=== PATIENT | female | born 1965 | race Caucasian/White ===

== ENCOUNTER 2017-12-30 20:50 | Inpatient (IN) | payer OTHER ==
[2017-12-30] MEDS ORDERED: ALBUTEROL 0.5% (NEB) 2.5 MG/0.5 ML AMP INH (20:54)
[2017-12-30] MEDS: LEVALBUTEROL (NEB) 1.25 MG/0.5 ML AMP INH ×2 (21:05→22:40)
[2017-12-30] MEDS: SOD CHLORIDE 0.9% 1,000 ML IV (21:11)
[2017-12-30] MEDS: IBUPROFEN 800 MG TAB PO (21:11)
[2017-12-30] MEDS: SODIUM CHLORIDE 0.9% 1L BAG IV* (21:11)
[2017-12-30] MEDS: METHYLPREDNISOLONE 125 MG INJ IV (21:11)
[2017-12-31 00:19] LABS: ADD MAN DIFF? NO
[2017-12-31 00:20] LABS: BASOPHILS % 0.1 % (0.0-2.0); HEMATOCRIT 38.5 % (37.0-47.0); HEMOGLOBIN 13.2 g/dl (12.0-16.0); LYMPHOCYTES # 0.7 10^3/ul (0.8-2.9); LYMPHOCYTES % 9.7 % (15.0-51.0); MEAN CORPUSCULAR HEMOGLOBIN 30.1 pg (29.0-33.0); MEAN CORPUSCULAR HGB CONC 34.3 g/dl (32.0-37.0); MEAN CORPUSCULAR VOLUME 87.9 fl (82.0-101.0); MEAN PLATELET VOLUME 9.8 fl (7.4-10.4); MONOCYTE # 0.2 10^3/ul (0.3-0.9); MONOCYTES % 2.5 % (0.0-11.0); NEUTROPHIL # 6.2 10^3/ul (1.6-7.5); PLATELET COUNT 226 10^3/UL (140-415); RED BLOOD COUNT 4.38 10^6/ul (4.20-5.40); RED CELL DISTRIBUTION WIDTH 12.2 % (11.5-14.5)
[2017-12-31 00:20] LABS: WHITE BLOOD COUNT 7.1 10^3/ul (4.8-10.8)
[2017-12-31] MEDS ORDERED: ACETAMINOPHEN 325 MG TAB PO (00:30)
[2017-12-31] MEDS ORDERED: ONDANSETRON 4 MG INJ IV ×2 (00:30→05:00)
[2017-12-31] MEDS: SOD CHLORIDE 0.9% 500 ML IV (00:50)
[2017-12-31 00:51] LABS: BLOOD UREA NITROGEN 11 mg/dl (7-20); CARBON DIOXIDE 18 mmol/L (21-31); CHLORIDE 98 mmol/L (97-110); CREATININE 0.61 mg/dl (0.44-1.00); SODIUM 139 mmol/L (135-144)
[2017-12-31 01:09] LABS: POTASSIUM 2.9 mmol/L (3.5-5.1)
[2017-12-31 01:10] LABS: ANION GAP 26 (8-16); GLUCOSE 580 mg/dl (70-220)
[2017-12-31] MEDS: LEVALBUTEROL (NEB) 1.25 MG/0.5 ML AMP HHN ×2 (01:13→20:51)
[2017-12-31] MEDS: CEFTRIAXONE 1 GM/50 ML (PMX) 50 ML IVPB (01:28)
[2017-12-31] MEDS: ACETAMINOPHEN 500 MG TAB PO (01:28)
[2017-12-31] MEDS: POTASSIUM CHLORIDE (SR) 20 MEQ TAB PO (01:28)
[2017-12-31] MEDS: AZITHROMYCIN 500MG/NS (PMX) 250 ML IV (02:14)
[2017-12-31 02:21] LABS: LACTIC ACID 5.3 mmol/L (0.5-2.0)
[2017-12-31] MEDS: POTASSIUM CHLORIDE 50 ML IVPB ×4 (03:11→07:30)
[2017-12-31] MEDS ORDERED: SOD CHLORIDE 0.9% 1,000 ML IV (04:51)
[2017-12-31] MEDS ORDERED: DEXTROSE 50% 50 ML SYRINGE IV ×2 (05:00)
[2017-12-31] MEDS: ACCU-CHEK XX ×20 (05:00→23:56)
[2017-12-31] MEDS ORDERED: morphine 2 MG INJ IV (05:00)
[2017-12-31 05:46] LABS: ADD MAN DIFF? NO
[2017-12-31 05:49] LABS: BASOPHILS % 0.3 % (0.0-2.0); HEMATOCRIT 37.9 % (37.0-47.0); LYMPHOCYTES # 0.7 10^3/ul (0.8-2.9); LYMPHOCYTES % 10.5 % (15.0-51.0); MEAN CORPUSCULAR HEMOGLOBIN 30.6 pg (29.0-33.0); MEAN CORPUSCULAR HGB CONC 34.3 g/dl (32.0-37.0); MEAN CORPUSCULAR VOLUME 89.2 fl (82.0-101.0); MEAN PLATELET VOLUME 9.9 fl (7.4-10.4); MONOCYTE # 0.1 10^3/ul (0.3-0.9); MONOCYTES % 1.9 % (0.0-11.0); NEUTROPHIL # 5.4 10^3/ul (1.6-7.5); NEUTROPHILS % 86.5 % (39.0-77.0); PLATELET COUNT 227 10^3/UL (140-415); RED BLOOD COUNT 4.25 10^6/ul (4.20-5.40); RED CELL DISTRIBUTION WIDTH 12.3 % (11.5-14.5)
[2017-12-31 05:49] LABS: WHITE BLOOD COUNT 6.3 10^3/ul (4.8-10.8)
[2017-12-31 06:16] LABS: ANION GAP 30 (8-16); BLOOD UREA NITROGEN 12 mg/dl (7-20); CALCIUM 8.6 mg/dl (8.4-10.2); CARBON DIOXIDE 10 mmol/L (21-31); CHLORIDE 108 mmol/L (97-110); CREATININE 0.61 mg/dl (0.44-1.00); POTASSIUM 4.2 mmol/L (3.5-5.1); SODIUM 144 mmol/L (135-144)
[2017-12-31] MEDS: INSULIN HUMAN REGULAR 100 UNIT in SOD CHLORIDE 0.9% 99 ML IV ×2 (06:21→19:01)
[2017-12-31] MEDS: ALBUTEROL/IPRATROPIUM (NEB) 3 ML AMP NEB ×3 (06:25→17:31)
[2017-12-31 06:26] LABS: GLUCOSE 558 mg/dl (70-220)
[2017-12-31 06:58] LABS: HEMOGLOBIN A1C 9.6 % (0-5.9)
[2017-12-31] MEDS: FAMOTIDINE 20 MG INJ IV ×2 (09:00→21:06)
[2017-12-31] MEDS ORDERED: METHYLPREDNISOLONE 125 MG INJ IV (10:00)
[2017-12-31] MEDS ORDERED: LEVOFLOXACIN 500MG/D5W (PMX) 100 ML IVPB (10:00)
[2017-12-31] MEDS: SOD CHLORIDE 0.45% 1,000 ML IV ×3 (11:00→22:30)
[2017-12-31] MEDS: SOD CHLORIDE 0.9% 1,000 ML IV (11:32)
[2017-12-31 13:00] LABS: ANION GAP 22 (8-16); BLOOD UREA NITROGEN 11 mg/dl (7-20); CALCIUM 9.4 mg/dl (8.4-10.2); CARBON DIOXIDE 18 mmol/L (21-31); CHLORIDE 113 mmol/L (97-110); CREATININE 0.54 mg/dl (0.44-1.00); GLUCOSE 377 mg/dl (70-220); PHOSPHORUS 2.4 mg/dl (2.5-4.9); POTASSIUM 4.6 mmol/L (3.5-5.1); SODIUM 148 mmol/L (135-144)
[2017-12-31] MEDS: GUAIFENESIN/CODEINE 5ML CUP PO ×2 (17:47→22:39)
[2017-12-31] MEDS: DEXTROSE 5%-0.45% NACL 1,000 ML IV ×2 (18:42→18:59)
[2017-12-31] MEDS: ALBUTEROL/IPRATROPIUM (NEB) 3 ML AMP HHN (19:11)
[2017-12-31] MEDS ORDERED: LORAZEPAM 2 MG INJ (19:13)
[2017-12-31] MEDS ORDERED: METHYLPREDNISOLONE 125 MG INJ (19:14)
[2017-12-31] MEDS: LORAZEPAM 2 MG INJ IV (19:19)
[2017-12-31] MEDS: LABETALOL HCL 20MG INJ IV (19:19)
[2017-12-31] MEDS: METHYLPREDNISOLONE 125 MG INJ IV ×2 (19:20→23:45)
[2017-12-31] MEDS: LACTATED RINGER'S 1,000 ML IV (19:30)
[2017-12-31] MEDS: LEVOFLOXACIN 500MG/D5W (PMX) 100 ML IVPB (19:30)
[2017-12-31 19:47] LABS: AADO2 Arterial 600.1 mmHg (7.0-24.0); Arterial Base Excess -5.3 mmol/L (-3.0-3); Arterial COHb 0.1 % (0.0-3.0); Arterial Fraction of Oxyhgb 93.5 % (93.0-99.0); Arterial HCO3 20.3 mmol/L (22.0-26.0); Arterial MetHb 0.4 % (0.0-1.5); Arterial Total Hemglobin 14.9 g/dl (12.0-18.0); Arterial pCO2 40.3 mmhg (35-45); MODE MASK - NRB; Site Right Brachial
[2017-12-31] MEDS ORDERED: FUROSEMIDE 20 MG INJ (20:36)
[2017-12-31] MEDS: IPRATROPIUM (NEB) 0.5 MG/2.5 ML AMP HHN (20:51)
[2017-12-31] MEDS: SODIUM PHOSPHATE 15 MMOL in SOD CHLORIDE 0.9% 250 ML IVPB (21:06)
[2017-12-31] MEDS: FUROSEMIDE 20 MG INJ IV (21:06)
[2018-01-01 00:04] LABS: PHOSPHORUS 2.8 mg/dl (2.5-4.9)
[2018-01-01 00:04] LABS: MAGNESIUM 1.8 mg/dl (1.7-2.5)
[2018-01-01 00:14] LABS: B-TYPE NATRIURETIC PEPTIDE 5350 PG/ML (0-125)
[2018-01-01 00:50] LABS: ALBUMIN 4.1 g/dl (3.3-4.9); ANION GAP 21 (8-16); BLOOD UREA NITROGEN 14 mg/dl (7-20); CALCIUM 9.4 mg/dl (8.4-10.2); CARBON DIOXIDE 19 mmol/L (21-31); CHLORIDE 114 mmol/L (97-110); CREATININE 0.46 mg/dl (0.44-1.00); GLUCOSE 245 mg/dl (70-220); PHOSPHORUS 2.9 mg/dl (2.5-4.9); POTASSIUM 4.2 mmol/L (3.5-5.1); SODIUM 150 mmol/L (135-144)
[2018-01-01] MEDS: ACCU-CHEK XX ×23 (01:00→23:13)
[2018-01-01] MEDS: DEXTROSE 5%-0.45% NACL 1,000 ML IV ×3 (02:24→22:17)
[2018-01-01] MEDS: CEFEPIME 1GM/50 ML (PMX) 50 ML IVPB ×2 (03:37→22:09)
[2018-01-01] MEDS ORDERED: VANCOMYCIN IV PER PHARMACY XX (04:00)
[2018-01-01] MEDS: VANCOMYCIN 2 GM in SOD CHLORIDE 0.9% 500 ML IVPB (04:49)
[2018-01-01] MEDS: METHYLPREDNISOLONE 125 MG INJ IV (05:05)
[2018-01-01 05:07] LABS: ADD MAN DIFF? NO
[2018-01-01 05:11] LABS: WHITE BLOOD COUNT 15.5 10^3/ul (4.8-10.8)
[2018-01-01 05:11] LABS: BASOPHILS % 0.2 % (0.0-2.0); HEMATOCRIT 42.4 % (37.0-47.0); HEMOGLOBIN 14.5 g/dl (12.0-16.0); LYMPHOCYTES # 1.7 10^3/ul (0.8-2.9); LYMPHOCYTES % 11.2 % (15.0-51.0); MEAN CORPUSCULAR HEMOGLOBIN 30.2 pg (29.0-33.0); MEAN CORPUSCULAR HGB CONC 34.2 g/dl (32.0-37.0); MEAN CORPUSCULAR VOLUME 88.3 fl (82.0-101.0); MEAN PLATELET VOLUME 9.6 fl (7.4-10.4); MONOCYTE # 0.4 10^3/ul (0.3-0.9); MONOCYTES % 2.6 % (0.0-11.0); NEUTROPHIL # 13.2 10^3/ul (1.6-7.5); NEUTROPHILS % 85.1 % (39.0-77.0); PLATELET COUNT 304 10^3/UL (140-415); RED CELL DISTRIBUTION WIDTH 12.7 % (11.5-14.5)
[2018-01-01] MEDS: GUAIFENESIN/CODEINE 5ML CUP PO ×4 (05:23→23:17)
[2018-01-01 05:45] LABS: ALBUMIN 4.2 g/dl (3.3-4.9); ANION GAP 20 (8-16); BLOOD UREA NITROGEN 14 mg/dl (7-20); CALCIUM 9.3 mg/dl (8.4-10.2); CARBON DIOXIDE 20 mmol/L (21-31); CHLORIDE 110 mmol/L (97-110); CREATININE 0.46 mg/dl (0.44-1.00); GLUCOSE 254 mg/dl (70-220); PHOSPHORUS 2.9 mg/dl (2.5-4.9); POTASSIUM 3.7 mmol/L (3.5-5.1); SODIUM 146 mmol/L (135-144)
[2018-01-01] MEDS: ALBUTEROL/IPRATROPIUM (NEB) 3 ML AMP HHN ×3 (07:54→20:18)
[2018-01-01] MEDS: FAMOTIDINE 20 MG INJ IV ×2 (08:25→22:09)
[2018-01-01] MEDS: LABETALOL HCL 20MG INJ IV (08:26)
[2018-01-01] MEDS: ACETAMINOPHEN 650MG/20.3ML CUP PO (08:26)
[2018-01-01] MEDS: CEPASTAT LOZENGE MT ×2 (10:47→14:38)
[2018-01-01 10:59] LABS: ADD UMIC YES; UR ASCORBIC ACID NEGATIVE (NEGATIVE); UR BACTERIA FEW /HPF (NONE SEEN); UR BILIRUBIN (Dip) NEGATIVE (NEGATIVE); UR BLOOD (Dip) 2+ mg/dL (NEGATIVE); UR CLARITY CLOUDY (CLEAR); UR COLOR YELLOW (YELLOW); UR GLUCOSE (Dip) 3+ mg/dL (NEGATIVE); UR KETONES (Dip) 1+ mg/dL (NEGATIVE); UR LEUKOCYTE ESTERASE (Dip) NEGATIVE Leu/ul (NEGATIVE); UR MUCUS FEW /HPF (NONE SEEN); UR NITRITE (Dip) NEGATIVE (NEGATIVE); UR RBC 20 /HPF (0-5); UR TOTAL PROTEIN (Dip) 1+ mg/dl (NEGATIVE); UR UROBILINOGEN (Dip) NEGATIVE (NEGATIVE); UR WBC 9 /HPF (0-5)
[2018-01-01 11:37] LABS: MAGNESIUM 1.8 mg/dl (1.7-2.5)
[2018-01-01 11:38] LABS: ANION GAP 18 (8-16); BLOOD UREA NITROGEN 13 mg/dl (7-20); CALCIUM 9.2 mg/dl (8.4-10.2); CARBON DIOXIDE 20 mmol/L (21-31); CHLORIDE 111 mmol/L (97-110); CREATININE 0.41 mg/dl (0.44-1.00); GLUCOSE 174 mg/dl (70-220); POTASSIUM 3.1 mmol/L (3.5-5.1); SODIUM 146 mmol/L (135-144)
[2018-01-01 11:59] LABS: LACTIC ACID 2.8 mmol/L (0.5-2.0)
[2018-01-01] MEDS ORDERED: POTASSIUM CHLORIDE 50 ML IVPB (12:30)
[2018-01-01] MEDS: INSULIN HUMAN REGULAR 100 UNIT in SOD CHLORIDE 0.9% 99 ML IV (12:41)
[2018-01-01] MEDS: LEVOFLOXACIN 500MG/D5W (PMX) 100 ML IVPB (12:56)
[2018-01-01] MEDS: POTASSIUM CHLORIDE 30 MEQ in DEXTROSE 5% 250 ML IV (13:56)
[2018-01-01] MEDS: VANCOMYCIN 1.5 GM in SOD CHLORIDE 0.9% 250 ML IVPB (18:11)
[2018-01-01 19:09] LABS: ANION GAP 17 (8-16); BLOOD UREA NITROGEN 11 mg/dl (7-20); CALCIUM 9.4 mg/dl (8.4-10.2); CARBON DIOXIDE 22 mmol/L (21-31); CHLORIDE 108 mmol/L (97-110); CREATININE 0.39 mg/dl (0.44-1.00); GLUCOSE 139 mg/dl (70-220); POTASSIUM 3.3 mmol/L (3.5-5.1); SODIUM 144 mmol/L (135-144)
[2018-01-01 19:10] LABS: MAGNESIUM 1.7 mg/dl (1.7-2.5)
[2018-01-01 19:12] LABS: LACTIC ACID 3.1 mmol/L (0.5-2.0)
[2018-01-02] MEDS: ACCU-CHEK XX ×12 (01:04→20:23)
[2018-01-02 01:07] LABS: MAGNESIUM 1.6 mg/dl (1.7-2.5)
[2018-01-02 01:07] LABS: ANION GAP 16 (8-16); BLOOD UREA NITROGEN 11 mg/dl (7-20); CALCIUM 8.9 mg/dl (8.4-10.2); CARBON DIOXIDE 23 mmol/L (21-31); CHLORIDE 108 mmol/L (97-110); CREATININE 0.46 mg/dl (0.44-1.00); GLUCOSE 186 mg/dl (70-220); POTASSIUM 3.3 mmol/L (3.5-5.1); SODIUM 144 mmol/L (135-144)
[2018-01-02] MEDS: INSULIN HUMAN REGULAR 100 UNIT in SOD CHLORIDE 0.9% 99 ML IV (03:49)
[2018-01-02] MEDS: NS IVPB (04:25)
[2018-01-02] MEDS: POTASSIUM CHLORIDE 30 MEQ IVPB (04:25)
[2018-01-02] MEDS: VANCOMYCIN 1.5 GM in SOD CHLORIDE 0.9% 250 ML IVPB ×2 (05:03→17:29)
[2018-01-02] MEDS: DEXTROSE 5%-0.45% NACL 1,000 ML IV (06:20)
[2018-01-02] MEDS ORDERED: MAGNESIUM SULFATE 2 GM/50 ML 50 ML (06:35)
[2018-01-02] MEDS: MAGNESIUM SULFATE 2 GM/50 ML 50 ML IVPB (06:38)
[2018-01-02] MEDS: ALBUTEROL/IPRATROPIUM (NEB) 3 ML AMP HHN ×3 (07:36→19:25)
[2018-01-02 08:42] LABS: ADD MAN DIFF? NO
[2018-01-02 08:46] LABS: BASOPHILS % 0.1 % (0.0-2.0); HEMATOCRIT 35.5 % (37.0-47.0); HEMOGLOBIN 12.6 g/dl (12.0-16.0); LYMPHOCYTES # 3.7 10^3/ul (0.8-2.9); LYMPHOCYTES % 26.6 % (15.0-51.0); MEAN CORPUSCULAR HGB CONC 35.5 g/dl (32.0-37.0); MEAN CORPUSCULAR VOLUME 87.4 fl (82.0-101.0); MEAN PLATELET VOLUME 9.2 fl (7.4-10.4); MONOCYTE # 1.2 10^3/ul (0.3-0.9); MONOCYTES % 8.3 % (0.0-11.0); NEUTROPHIL # 8.9 10^3/ul (1.6-7.5); NEUTROPHILS % 64.1 % (39.0-77.0); PLATELET COUNT 273 10^3/UL (140-415); RED BLOOD COUNT 4.06 10^6/ul (4.20-5.40); RED CELL DISTRIBUTION WIDTH 12.7 % (11.5-14.5)
[2018-01-02 08:46] LABS: WHITE BLOOD COUNT 13.9 10^3/ul (4.8-10.8)
[2018-01-02 09:06] LABS: POSITIVE DIFF @See below
[2018-01-02 09:10] LABS: ANION GAP 12 (8-16); BLOOD UREA NITROGEN 11 mg/dl (7-20); CALCIUM 8.3 mg/dl (8.4-10.2); CARBON DIOXIDE 25 mmol/L (21-31); CHLORIDE 111 mmol/L (97-110); CREATININE 0.48 mg/dl (0.44-1.00); GLUCOSE 123 mg/dl (70-220); MAGNESIUM 2.2 mg/dl (1.7-2.5); PHOSPHORUS 2.2 mg/dl (2.5-4.9); POTASSIUM 3.2 mmol/L (3.5-5.1); SODIUM 145 mmol/L (135-144)
[2018-01-02 09:46] LABS: ANISOCYTOSIS 1+ (0-0); LYMPHOCYTES #M 4.1 10^3/ul (0.8-2.9); LYMPHOCYTES % (M) 30 % (15-51); MICROCYTOSIS 1+ (0-0); MONOCYTE #M 1.1 10^3/ul (0.3-0.9); MONOCYTES % (M) 8 % (0-11); PLATELET ESTIMATE NORMAL; POLYCHROMASIA 1+ (0-0); PROMYELOCYTES #M 0.1 10^3/ul (0-0); PROMYELOCYTES % (M) 1 % (0-0); SEGMENTED NEUTROPHILS (M) % 61 % (39-77); SMUDGE%M 6 % (0-0)
[2018-01-02] MEDS: FAMOTIDINE 20 MG INJ IV ×2 (09:57→20:15)
[2018-01-02] MEDS: CEFEPIME 1GM/50 ML (PMX) 50 ML IVPB ×2 (09:57→22:16)
[2018-01-02] MEDS: GUAIFENESIN/CODEINE 5ML CUP PO ×2 (10:53→22:20)
[2018-01-02] MEDS ORDERED: DEXTROSE 50% 50 ML SYRINGE IV ×2 (11:00)
[2018-01-02] MEDS ORDERED: GLUCOSE GEL 15 GRAM TUBE PO ×2 (11:00)
[2018-01-02] MEDS ORDERED: GLUCAGON 1 MG INJ IM (11:00)
[2018-01-02] MEDS ORDERED: GLUCOSE GEL 15 GRAM TUBE BUCCAL (11:00)
[2018-01-02] MEDS: KCL 30 MEQ in NS 250 ML IVPB X1 IVPB (11:17)
[2018-01-02] MEDS: LEVOFLOXACIN 500MG/D5W (PMX) 100 ML IVPB (11:17)
[2018-01-02] MEDS: INSULIN GLARGINE [LANtus] 3 ML PEN SC (11:21)
[2018-01-02] MEDS: INSULIN ASPART [NOVOLOG] 3 ML PEN SC ×3 (11:30→20:19)
[2018-01-02 17:16] LABS: VANCOMYCIN,TROUGH 8.1 ug/ml (10.0-20.0)
[2018-01-03] MEDS: VANCOMYCIN 1.5 GM in SOD CHLORIDE 0.9% 250 ML IVPB (01:43)
[2018-01-03] MEDS: hydrALAzine 20 MG INJ IV ×3 (02:08→20:49)
[2018-01-03 06:18] LABS: ADD MAN DIFF? NO
[2018-01-03 06:29] LABS: BASOPHILS % 0.2 % (0.0-2.0); EOSINOPHILS % 0.3 % (0.0-7.0); HEMATOCRIT 38.9 % (37.0-47.0); HEMOGLOBIN 13.5 g/dl (12.0-16.0); LYMPHOCYTES # 3.8 10^3/ul (0.8-2.9); LYMPHOCYTES % 41.6 % (15.0-51.0); MEAN CORPUSCULAR HEMOGLOBIN 30.7 pg (29.0-33.0); MEAN CORPUSCULAR HGB CONC 34.7 g/dl (32.0-37.0); MEAN CORPUSCULAR VOLUME 88.4 fl (82.0-101.0); MEAN PLATELET VOLUME 9.2 fl (7.4-10.4); MONOCYTE # 0.9 10^3/ul (0.3-0.9); MONOCYTES % 9.5 % (0.0-11.0); NEUTROPHIL # 4.3 10^3/ul (1.6-7.5); NEUTROPHILS % 47.1 % (39.0-77.0); PLATELET COUNT 312 10^3/UL (140-415); RED CELL DISTRIBUTION WIDTH 12.8 % (11.5-14.5)
[2018-01-03 06:29] LABS: WHITE BLOOD COUNT 9.1 10^3/ul (4.8-10.8)
[2018-01-03 06:51] LABS: ANION GAP 12 (8-16); BLOOD UREA NITROGEN 14 mg/dl (7-20); CALCIUM 8.5 mg/dl (8.4-10.2); CARBON DIOXIDE 28 mmol/L (21-31); CHLORIDE 107 mmol/L (97-110); CREATININE 0.54 mg/dl (0.44-1.00); GLUCOSE 254 mg/dl (70-220); MAGNESIUM 1.7 mg/dl (1.7-2.5); PHOSPHORUS 2.9 mg/dl (2.5-4.9); SODIUM 143 mmol/L (135-144)
[2018-01-03] MEDS: ALBUTEROL/IPRATROPIUM (NEB) 3 ML AMP HHN ×3 (07:38→20:19)
[2018-01-03] MEDS: INSULIN ASPART [NOVOLOG] 3 ML PEN SC ×6 (08:02→20:59)
[2018-01-03] MEDS: INSULIN GLARGINE [LANtus] 3 ML PEN SC (08:02)
[2018-01-03] MEDS: FAMOTIDINE 20 MG INJ IV ×2 (08:02→20:46)
[2018-01-03] MEDS: CEFEPIME 1GM/50 ML (PMX) 50 ML IVPB ×2 (08:03→20:47)
[2018-01-03] MEDS: ACCU-CHEK XX ×4 (08:03→21:03)
[2018-01-03] MEDS: LISINOPRIL 5 MG TAB PO (10:48)
[2018-01-03] MEDS: LEVOFLOXACIN 500MG/D5W (PMX) 100 ML IVPB (12:16)
[2018-01-03] MEDS ORDERED: VANCOMYCIN 1.5 GM in SOD CHLORIDE 0.9% 250 ML IVPB (13:00)
[2018-01-03] MEDS: GUAIFENESIN/CODEINE 5ML CUP PO (21:02)
[2018-01-04] MEDS: hydrALAzine 20 MG INJ IV ×2 (02:29→21:53)
[2018-01-04 05:39] LABS: ADD MAN DIFF? NO
[2018-01-04 05:47] LABS: WHITE BLOOD COUNT 8.4 10^3/ul (4.8-10.8)
[2018-01-04 05:47] LABS: BASOPHILS % 0.2 % (0.0-2.0); EOSINOPHILS # 0.1 10^3/ul (0.0-0.5); EOSINOPHILS % 0.6 % (0.0-7.0); HEMATOCRIT 37.2 % (37.0-47.0); HEMOGLOBIN 13.1 g/dl (12.0-16.0); LYMPHOCYTES # 3.3 10^3/ul (0.8-2.9); LYMPHOCYTES % 39.2 % (15.0-51.0); MEAN CORPUSCULAR HEMOGLOBIN 30.4 pg (29.0-33.0); MEAN CORPUSCULAR HGB CONC 35.2 g/dl (32.0-37.0); MEAN CORPUSCULAR VOLUME 86.3 fl (82.0-101.0); MEAN PLATELET VOLUME 9.2 fl (7.4-10.4); MONOCYTE # 0.8 10^3/ul (0.3-0.9); NEUTROPHILS % 48.2 % (39.0-77.0); PLATELET COUNT 316 10^3/UL (140-415); RED BLOOD COUNT 4.31 10^6/ul (4.20-5.40); RED CELL DISTRIBUTION WIDTH 12.5 % (11.5-14.5)
[2018-01-04] MEDS: LEVOFLOXACIN 500 MG TAB PO (06:14)
[2018-01-04 06:19] LABS: ALBUMIN 2.7 g/dl (3.3-4.9); ANION GAP 12 (8-16); BLOOD UREA NITROGEN 10 mg/dl (7-20); CALCIUM 8.6 mg/dl (8.4-10.2); CARBON DIOXIDE 27 mmol/L (21-31); CHLORIDE 105 mmol/L (97-110); CREATININE 0.41 mg/dl (0.44-1.00); GLUCOSE 228 mg/dl (70-220); MAGNESIUM 1.4 mg/dl (1.7-2.5); PHOSPHORUS 3.7 mg/dl (2.5-4.9); POTASSIUM 3.9 mmol/L (3.5-5.1); SODIUM 140 mmol/L (135-144)
[2018-01-04] MEDS: INSULIN ASPART [NOVOLOG] 3 ML PEN SC ×7 (08:03→21:08)
[2018-01-04] MEDS: INSULIN GLARGINE [LANtus] 3 ML PEN SC (08:04)
[2018-01-04] MEDS: GUAIFENESIN/CODEINE 5ML CUP PO ×4 (08:06→21:58)
[2018-01-04] MEDS: ACCU-CHEK XX ×4 (08:06→21:05)
[2018-01-04] MEDS: CEFEPIME 1GM/50 ML (PMX) 50 ML IVPB (08:06)
[2018-01-04] MEDS: FAMOTIDINE 20 MG INJ IV ×2 (08:07→20:23)
[2018-01-04] MEDS: LISINOPRIL 5 MG TAB PO (08:07)
[2018-01-04] MEDS: ALBUTEROL/IPRATROPIUM (NEB) 3 ML AMP HHN (08:35)
[2018-01-04] MEDS: MAGNESIUM OXIDE 400 MG TAB PO (10:07)
[2018-01-04] MEDS: METOPROLOL 25 MG TAB PO ×2 (10:08→20:23)
[2018-01-04] MEDS: LEVALBUTEROL (NEB) 0.63 MG/3 ML AMP HHN ×2 (14:28→23:20)
[2018-01-05] MEDS: ACCU-CHEK XX ×4 (01:25→20:40)
[2018-01-05 05:30] LABS: ADD MAN DIFF? NO
[2018-01-05] MEDS: LEVOFLOXACIN 500 MG TAB PO (05:30)
[2018-01-05] MEDS: CEPASTAT LOZENGE MT (05:33)
[2018-01-05] MEDS: GUAIFENESIN/CODEINE 5ML CUP PO ×3 (05:33→21:11)
[2018-01-05 05:45] LABS: WHITE BLOOD COUNT 10.1 10^3/ul (4.8-10.8)
[2018-01-05 05:45] LABS: BASOPHILS % 0.3 % (0.0-2.0); EOSINOPHILS # 0.1 10^3/ul (0.0-0.5); EOSINOPHILS % 0.6 % (0.0-7.0); HEMATOCRIT 38.3 % (37.0-47.0); HEMOGLOBIN 13.4 g/dl (12.0-16.0); LYMPHOCYTES # 3.4 10^3/ul (0.8-2.9); LYMPHOCYTES % 33.7 % (15.0-51.0); MEAN CORPUSCULAR HEMOGLOBIN 30.7 pg (29.0-33.0); MEAN CORPUSCULAR VOLUME 87.8 fl (82.0-101.0); MEAN PLATELET VOLUME 8.8 fl (7.4-10.4); MONOCYTE # 0.9 10^3/ul (0.3-0.9); MONOCYTES % 8.4 % (0.0-11.0); NEUTROPHIL # 5.6 10^3/ul (1.6-7.5); NEUTROPHILS % 55.7 % (39.0-77.0); PLATELET COUNT 356 10^3/UL (140-415); RED BLOOD COUNT 4.36 10^6/ul (4.20-5.40); RED CELL DISTRIBUTION WIDTH 12.2 % (11.5-14.5)
[2018-01-05 06:48] LABS: ALBUMIN 3.3 g/dl (3.3-4.9); ANION GAP 16 (8-16); BLOOD UREA NITROGEN 8 mg/dl (7-20); CARBON DIOXIDE 28 mmol/L (21-31); CHLORIDE 99 mmol/L (97-110); CREATININE 0.46 mg/dl (0.44-1.00); GLUCOSE 255 mg/dl (70-220); MAGNESIUM 1.5 mg/dl (1.7-2.5); PHOSPHORUS 3.6 mg/dl (2.5-4.9); POTASSIUM 3.8 mmol/L (3.5-5.1); SODIUM 139 mmol/L (135-144)
[2018-01-05] MEDS: INSULIN ASPART [NOVOLOG] 3 ML PEN SC ×7 (08:36→20:39)
[2018-01-05] MEDS: INSULIN GLARGINE [LANtus] 3 ML PEN SC (08:37)
[2018-01-05] MEDS: LISINOPRIL 5 MG TAB PO ×2 (08:40→10:50)
[2018-01-05] MEDS: METOPROLOL 25 MG TAB PO ×2 (08:40→10:50)
[2018-01-05] MEDS: FAMOTIDINE 20 MG INJ IV ×2 (08:41→20:36)
[2018-01-05] MEDS: LEVALBUTEROL (NEB) 0.63 MG/3 ML AMP HHN (08:41)
[2018-01-05 11:47] LABS: THYROID STIMULATING HORMONE 0.251 MIU/L (0.465-4.680)
[2018-01-05] MEDS: ACETAMINOPHEN 650MG/20.3ML CUP PO (15:06)
[2018-01-05] MEDS: METOPROLOL 50 MG TAB PO (20:35)
[2018-01-06] MEDS: GUAIFENESIN/CODEINE 5ML CUP PO ×3 (04:58→12:00)
[2018-01-06] MEDS: LEVOFLOXACIN 500 MG TAB PO (06:21)
[2018-01-06] MEDS: INSULIN ASPART [NOVOLOG] 3 ML PEN SC ×6 (08:26→17:24)
[2018-01-06] MEDS: INSULIN GLARGINE [LANtus] 3 ML PEN SC (08:27)
[2018-01-06] MEDS: ACCU-CHEK XX ×3 (08:28→17:24)
[2018-01-06] MEDS: METOPROLOL 50 MG TAB PO (09:01)
[2018-01-06] MEDS: LISINOPRIL 10 MG TAB PO (09:01)
[2018-01-06] MEDS: FAMOTIDINE 20 MG INJ IV (09:02)
[2018-01-06] MEDS: LORATADINE 10 MG TAB PO (10:41)
[2018-01-06] MEDS: INFLUENZA VIRUS VACCINE 0.5 ML SYG IM* (18:15)
== END 2018-01-06 18:15 | disposition home health service (06) | DRG 637 ==
LOC: ICU 12-31 00:23 → E/R 20:50 → MS2 01-02 16:40
PROC: 3E0F73Z Introduction of Anti-inflammatory into Respiratory Tract, Via Natural or Artificial Opening (ICD-10-PCS; principal; 2017-12-31)
DX: E11.10 Type 2 diabetes mellitus with ketoacidosis without coma (principal); J18.9 Pneumonia, unspecified organism; J18.0 Bronchopneumonia, unspecified organism; I50.30 Unspecified diastolic (congestive) heart failure; J45.909 Unspecified asthma, uncomplicated; J06.9 Acute upper respiratory infection, unspecified; J04.0 Acute laryngitis; Y95 Nosocomial condition; I11.0 Hypertensive heart disease with heart failure; R09.82 Postnasal drip
CPT/HCPCS: 36600; 71045; 80048; 80069; 80202; 81001; 82803; 82962; 83036; 83605; 83735; 83880; 84100; 84443; 85025; 87040; 87070; 87081; 90686; 93306; 94640; 94644; 94645; 94660; 94664; 96374; 99217; 99285-25

== ENCOUNTER → 2018-02-14 | Outpatient (CLI) | payer OTHER | END | disposition home or self-care (01) | LOC: DIB 12:00 | DX: Z02.9 Encounter for administrative examinations, unspecified (principal) ==